=== PATIENT | male | born 2000 | race Caucasian/White ===

== ENCOUNTER 2021-07-02 18:24 | Outpatient (REF) | payer MEDICAID, SELFPAY ==
[2021-07-02 21:09] LABS: ALT 25 U/L (16-63); AST 16 U/L (15-37); Albumin 4.9 g/dL (3.4-5.0); Alkaline Phosphatase 76 U/L (46-116); Anion Gap 13.9 mmol/L (3-11); BUN 13 mg/dL (7-18); Bilirubin, Total 0.7 mg/dL (0.2-1.0); CO2 22.1 mmol/L (21.0-32.0); CREATININE 0.8 mg/dL (0.70-1.30); Calcium 9.7 mg/dL (8.5-10.1); Chloride 102 mmol/L (98-107); Glucose 94 mg/dL (74-106); Potassium 3.9 mmol/L (3.5-5.1); Sodium 138 mmol/L (136-145); TSH (W/Ref FT4) 1.91 uIU/mL (0.36-3.74); Total Protein 8.3 g/dL (6.4-8.2)
[2021-07-04 13:26] LABS: COVID-19 RT-PCR UVMMC Result Negative (Negative)
== END 2021-07-02 18:25 | disposition home or self-care (01) ==
LOC: NCHCN 18:24
PROVIDERS: PCP Family Medicine; Visit Provider Physician Assistant Medical
DX: R06.02 Shortness of breath (principal); Z20.822 Contact with and (suspected) exposure to COVID-19; R09.89 Other specified symptoms and signs involving the circulatory and respiratory systems
CPT/HCPCS: 80053; U0003; 84443; 85025

== ENCOUNTER 2021-07-02 18:52 | Outpatient (CLI) | payer MEDICAID, SELFPAY ==
--- NOTE | 2021-07-02 | DI.RAD_ITS ---
Exam(s) XR CHEST 2V PA LATERAL EXAM: XR CHEST 2V PA LATERAL CLINICAL HISTORY: SOB TECHNIQUE: 2D digital imaging was performed. COMPARISON: No exams were available for comparison FINDINGS: MEDIASTINUM: Normal. HEART: Normal. PULMONARY VASCULATURE: Normal. LUNGS: Clear. PLEURAL SPACE: No pleural effusion or pneumothorax. BONE:Unremarkable for age. IMPRESSION: No acute abnormality. DATA REPOSITORY: RADIATION DOSE DELIVERED:
--- NOTE | 2021-07-02 19:14 | DI.VRAD_ITS ---
PROCEDURE INFORMATION: Exam: XR Chest Exam date and time: 07/02/2021 6:54 PM Age: 21 years old Clinical indication: Other: SOB TECHNIQUE: Imaging protocol: XR of the chest. Views: 2 views. COMPARISON: No relevant prior studies available. FINDINGS: Lungs: The lungs are clear. There is no pulmonary vascular congestion. Pleural spaces: There are no pleural effusions present. There is no evidence of pneumothorax. Heart/Mediastinum: The cardiomediastinal silhouette is within normal limits. Bones/joints: Unremarkable. IMPRESSION: No active cardiopulmonary disease identified. Dictated and Authenticated by: Jamil Horton MD. Ordering:KRISHNA Zavala MD
== END 2021-07-02 19:12 ==
PROVIDERS: PCP Family Medicine; Visit Provider Physician Assistant Medical
DX: R06.02 Shortness of breath (principal)
CPT/HCPCS: 71046

== ENCOUNTER 2021-07-07 04:10 | Outpatient (CLI) | payer MEDICAID, SELFPAY ==
[2021-07-07 09:43] LABS: ALT 25 U/L (16-63); AST 11 U/L (15-37); Albumin 4.3 g/dL (3.4-5.0); Alkaline Phosphatase 75 U/L (46-116); Anion Gap 10.3 mmol/L (3-11); BUN 14 mg/dL (7-18); Bilirubin, Total 0.6 mg/dL (0.2-1.0); CO2 25.7 mmol/L (21.0-32.0); CREATININE 0.8 mg/dL (0.70-1.30); Calcium 9.3 mg/dL (8.5-10.1); Chloride 103 mmol/L (98-107); Glucose 68 mg/dL (74-106); Potassium 4.4 mmol/L (3.5-5.1); Sodium 139 mmol/L (136-145); Total Protein 7.7 g/dL (6.4-8.2)
[2021-07-07 14:22] LABS: Abs Immature Grans 0.03 10^3/uL (0.0-0.06); Absolute Basophil Count 0.04 10^3/uL (0.0-0.2); Absolute Eosinophil Count 0.17 10^3/uL (0.0-0.7); Absolute Lymphocyte Count 2.26 10^3/uL (1.2-3.4); Absolute Monocyte Count 0.53 10^3/uL (0.1-0.8); Absolute Neutrophil Count 3.19 10^3/uL (1.2-6.7); Basophils % 0.6; Eosinophils % 2.7; HCT 48.4 % (40.0-50.0); HGB 15.9 g/dL (13.5-17.5); Immature Grans % 0.5; Lymphocytes % 36.3; MCH 30.3 pg (27.0-33.0); MCHC 32.9 % (32.0-36.0); MCV 92.2 fL (80-95); MPV 9.9 fL (8.0-11.0); Monocytes % 8.5; Neutrophils % 51.4; Nucleated RBC 0 %; Platelet Count 337 10^3/uL (130-400); RBC 5.25 10^6/uL (4.36-5.78); RDW 12.9 % (11.8-14.1); RDW-SD 43.6 fL; WBC 6.22 10^3/uL (4.4-10.8)
== END 2021-07-07 04:11 | disposition home or self-care (01) ==
LOC: LBO 04:10
PROVIDERS: PCP Family Medicine; Visit Provider Naturopath
DX: R06.00 Dyspnea, unspecified (principal); R07.9 Chest pain, unspecified; L04.0 Acute lymphadenitis of face, head and neck
CPT/HCPCS: 36415; 80053; 82306; 85025

== ENCOUNTER 2021-07-07 04:46 | Outpatient (CLI) | payer MEDICAID, SELFPAY ==
--- NOTE | 2021-07-07 08:30 | RT.EKG_ITS ---
APPROVED REPORT Exam: Resting ECG Reason for Exam: dyspnea/chest pain Patient Location: O HR:57 bpm ECG Measurements Heart Rate 57 AXIS AZ 161 P 49 QRSd 107 QRS 85 QT 414 T 12 QTc 404 Conclusion Sinus bradycardia...rate< 60 ST elev, probable normal early repol pattern...ST elevation, age<55 Normal Electrocardiogram
== END 2021-07-07 04:47 | disposition home or self-care (01) ==
LOC: RT 04:46
PROVIDERS: PCP Family Medicine; Visit Provider Naturopath
DX: R06.00 Dyspnea, unspecified (principal); R07.9 Chest pain, unspecified
CPT/HCPCS: 93005; 93010

== ENCOUNTER 2022-06-04 11:17 | Outpatient (CLI) | payer MEDICAID, SELFPAY ==
--- NOTE | 2022-06-04 10:45 | DI.RAD_ITS ---
Exam(s) XR SHOULDER RT COMPLETE 2+V EXAM: XR SHOULDER RT COMPLETE 2+V CLINICAL HISTORY: PAIN IN RT SHOULDER-M25.511. TECHNIQUE: 2D digital imaging was performed of the right shoulder. Five images were obtained. AP, Grashey, Y-view and axillary views were obtained. COMPARISON: CR,XR XR CHEST 2V PA LATERAL from 07/02/2021 FINDINGS: BONES: No acute fracture is present. No bony destructive lesion is seen. JOINTS: No dislocation present. SOFT TISSUE: Normal. IMPRESSION: Unremarkable radiographs of the right shoulder. If there is concern for AC joint separation, x-rays w ithout and with weights may be obtained. DATA REPOSITORY: RADIATION DOSE DELIVERED:
== END 2022-06-04 11:37 ==
PROVIDERS: PCP Family Medicine; Visit Provider Nurse Practitioner Family
DX: M25.511 Pain in right shoulder (principal)
CPT/HCPCS: 73030

== ENCOUNTER 2022-07-08 12:15 | Emergency (ER) | payer MEDICAID, SELFPAY ==
[2022-07-08] VITALS (10 sets, daily range): BP systolic 117–132; BP diastolic 72–91; PULSE 61–71; RESP 12–24; TEMP 37.2; O2SAT 97
--- NOTE | 2022-07-08 12:15 | DI.RAD_ITS ---
Exam(s) XR TIB/FIB LT EXAM: XR TIB/FIB LT CLINICAL HISTORY: trauma, boot top ski fall. TECHNIQUE: 2D digital imaging was performed. COMPARISON: No exams were available for comparison FINDINGS: 3 views There is a mildly displaced comminuted fracture at the midshaft of tibia. No osseous lesions nor rad iopaque foreign body. Tibial plateau is intact. There is no fibular fracture seen. IMPRESSION: Oblique mildly comminuted midshaft fracture of the tibia. DATA REPOSITORY: RADIATION DOSE DELIVERED:
[2022-07-08] MEDS: Ketorolac 30 MG/ML VIAL IVP (12:28)
--- NOTE | 2022-07-08 13:04 | ED.GENADUL_ITS ---
Discharge Plan Disposition Patient Disposition: Home Condition: Stable Discharge Details Clinical Impression: Fracture of tibia, left, closed, Fall from snow-skis, initial encounter Primary Care Provider: Chung Everett ED Provider: Karan Malcolm Home Meds and New Rx's Prescriptions: No Action aspirin 81 mg tablet,delayed release (DR/EC) 81 mg PO BID 30 Days Qty: 60 0RF naproxen 250 mg tablet 250 - 500 mg PO BID PRNQty: 40 0RF Rx Instructions: take with a meal tramadol 50 mg tablet 50 mg PO Q8H PRN (Reason: severe pain) Qty: 9 0RF Discharge Instructions Instructions: Leg Fracture (ED) Additional Instructions: No eating or drinking after midnight. Please take ibuprofen over the counter. Take 600mg by mouth every 6 hours as needed for pain. Please take acetaminophen (tylenol) - 650mg every 6 hours by mouth as needed for pain. Please keep splint clean, dry and intact. Use crutches. No weightbearing until cleared by orthopedics. Please follow-up with orthopedics. Call to schedule appointment for follow-up. Return to the emerge department immediately for any worsening or new concerning symptoms. Referrals: [facility] [Provider Group] Discharge Data Discharge Date/Time-TO BE ENTERED AT DEPARTURE: 07/08/22 16:20 Medical Decision Making 1309 -- 22 year-old male here with left lower leg pain after fall while skiing. Patient has swelling and tenderness of his mid lower leg. Neurovascular intact distally, no other injury. Hemodynamically stable. Patient given Toradol 30 mg IV for pain. X-ray of the left tib-fib reviewed and interpreted by me: Oblique fracture of the tibia. --Patient continued pain and was given acetaminophen IV. 1550 --patient was seen by Dr. Mcdonald and Dr. Lundberg. Plan for likely ORIF. They recommend posterior splint. Patient was given fentanyl 100 mcg IV for pain and posterior splint was applied by me. Patient neurovascular intact post splint application. Patient provided crutches and recommended nonweightbearing. Usual customary discharge instructions were reviewed with the patient. HPI General Mode of arrival: ambulatory . Date/Time Provider Initiated Documentation: 07/08/22 12:21 . Limitations to Documentation: no limitations . Information obtained by: patient . HPI Narrative: 22-year-old male presents with chief complaint of left leg pain. Patient was downhill skiing went off a jump and fell while landing. He felt a pop in his left lower leg and has had pain since the injury. He arrives by EMS and block splint. He denies associated head injury, neck, back injury, chest or abdominal injury. Patient did not his head and did not lose consciousness. Patient was given fentanyl IV for pain. Related Data Home Medications Medication Instructions Recorded Confirmed aspirin 81 mg tablet,delayed 81 mg PO BID Prevent blood clot 30 07/09/22 release days #60 tabs naproxen 250 mg tablet 250 - 500 mg PO BID PRN #40 tabs 07/09/22 tramadol 50 mg tablet 50 mg PO Q8H PRN severe pain #9 07/09/22 tabs Previous Rx's Medication Instructions Recorded aspirin 81 mg tablet,delayed 81 mg PO BID Prevent blood clot 30 07/09/22 release days #60 tabs naproxen 250 mg tablet 250 - 500 mg PO BID PRN #40 tabs 07/09/22 tramadol 50 mg tablet 50 mg PO Q8H PRN severe pain #9 07/09/22 tabs Allergies Allergy/AdvReac Type Severity Reaction Status Date / Time No Known Allergies Allergy Verified 07/09/22 13:41 General Stated Complaint: Orthopedic CASEY: 3 Review of Systems All systems reviewed & are unremarkable except as noted in HPI and below Constitutional Constitutional: Denies weakness Musculoskeletal Musculoskeletal: Reports as per HPI and Denies tingling Neurologic Neurologic: Denies sensory deficit, Denies tingling and Denies weakness Comments: No numbness or weakness PFSH All Active Problems Right shoulder pain (Acute) Muscle spasm (Acute) Fracture of tibia, left, closed (Acute) Fall from snow-skis, initial encounter (Acute) Medical History History of cellulitis on left leg-summer 2021 Hx of staphylococcal infection left leg-summer 2021 Surgical History History of lingual frenulectomy age 16 Hx of wisdom tooth extraction Social History Smoking/Tobacco Use Status: Current-Occasional Tobacco Type: cigarettes Smoking risk assessment performed?: Yes Alcohol Intake: current Alcohol Intake frequency: a few times a week Alcohol type: beer and hard liquor Drug use: Occasionally Substance use type: marijuana Details: t-1 @ 1800 Do you feel safe at home: Yes Do you feel safe in your relationship?: Yes Exam Const General: cooperative [facility] Head: normocephalic and atraumatic Eyes Conjunctivae: normal conjunctivae Sclera: normal sclerae Neck Neck: full ROM and nontender Resp Auscultation: clear to auscultation bilaterally, no rales, no rhonchi and no wheezes Cardio Rate: regular rate and not tachycardic Rhythm: regular rhythm GI Palpation: soft, not firm, no guarding, no masses, not rigid and nontender Skin General skin exam: no rashes or lesions noted Neuro General: patient alert, patient awake, patient oriented x3 and tone normal Extrem General: no edema Left lower extremity: lower leg Details: localized swelling Location: of the mid lower leg and no edema; no lacerations and no deformity and foot Details: normal capillary refill, toes with normal ROM and motor-sensory exam (nl) Psych Appearance: grossly normal Mental Status: mental status grossly normal Speech and Movement: speech and movement normal Course Vital Signs Vital signs: Vital Signs Temperature 37.2 C 07/08/22 12:14 Pulse 71 07/08/22 12:14 Respiratory Rate 18 07/08/22 12:14 Blood Pressure 132/86 07/08/22 12:14 Pulse Oximetry 97 07/08/22 12:14 Temperature 37.2 C 07/08/22 12:14 Temperature Source Temporal Artery Scan 07/08/22 12:14 Pulse 71 07/08/22 12:14 Respiratory Rate 18 07/08/22 12:14 Respiratory Effort 07/08/22 12:19 Blood Pressure 132/86 07/08/22 12:14 Blood Pressure Position Supine 07/08/22 12:14 Pulse Oximetry 97 07/08/22 12:14 Oxygen Delivery Method Room Air 07/08/22 12:14 Oxygen Flow Rate 0 07/08/22 12:14 Pain Level 7 07/08/22 12:28 PAWSS Have you Been Recently Intoxicated or Drunk Within the Last 30 days?: No Have you Ever Experienced Previous Episodes of Alcohol Withdrawal?: No Have you ever Experienced Withdrawal Seizures?: No Have you ever Experienced Delirium Tremens(DT)s?: No Have you ever undergone Alcohol Rehabilitation Treatment (i.e, inpt ot outpati ent treatment programs)?: No Have you ever Experienced Blackouts?: No Have you ever Combined Alcohol with other Downers within the last 90 days?: No Have you ever Combined Alcohol with any other Substance of Abuse during the last 90 days?: No Positive Blood Alcohol level on Presentation? [PCS.BAL]: No Evidence of Increased Autonomic Activity (i.e. HR>120, tremor, sweating, agitation, nausea)?: No Result: 0
[2022-07-08] MEDS: ACETAMINOPHEN 1,000 MG/100 ML BTL 400 MG IVPB (14:00)
[2022-07-08] MEDS: fentaNYL 100 MCG/2 ML VIAL (15:21)
--- NOTE | 2022-07-08 15:42 | W.ORTHOCONSU ---
Date of service: 07/08/22 Time of Service: 15:42 History of Present Illness History of Present Illness Chief Complaint: Left Tibia Fracture Narrative: Cem is a 22-year-old active male who was skiing today. He went for a jump and landed awkwardly. He had immediate pain and some deformity about the left leg. He is brought to the emergency department and diagnosed with a left tibial shaft fracture. His pain has been relatively well controlled. He has no other medical issues. 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 He denies any numbness or tingling. He has pain only in the midshaft of the tibia primarily. No pain in the knee. Consults Consult date: 07/08/22 Requesting physician: Karan Malcolm Consult Reason Left tibial shaft fracture Assessment and Plan Assessment and plan (1) Fracture of tibia, left, closed: Status: Acute Assessment and plan: Cem is a 22-year-old active male who has a left tibial shaft fracture. There very well may be a nondisplaced proximal fibular fracture but it does not change options of treatment. It is overall in a good alignment however, there is some mild displacement and comminution with the butterfly fragment. Given the time to heal of a left tibia fracture and his active lifestyle it would be recommended to have this fixed with intramedullary nail. I did discuss the treatment of cast but he would prefer to have this fixed to encourage early mobility given his active lifestyle and pursuits. I reviewed some the technical details about interventional nail fixation of the left tibia. I discussed briefly the rehabilitation involved. This would be done as a day surgery or short overnight stay. As for today, I recommend he is placed into a long-leg splint. He may use crutches to stay nonweightbearing. He does use marijuana and this can sometimes help out with pain and inflammation. He should keep the leg elevated at all times except for bathroom. He will be n.p.o. after midnight tonight, likely coming through same-day surgery tomorrow. My partner, Dr. Lundberg, is in the operating room tomorrow who should be able to fix this. We will work on scheduling later this evening and first thing the morning. I discussed all this with Cem and he is in agreement with the plan. Review of Systems All systems reviewed & are unremarkable except as noted in HPI and below PFSH All Active Problems Fracture of tibia, left, closed (Acute) Fall from snow-skis, initial encounter (Acute) Muscle spasm (Acute) Right shoulder pain (Acute) Social History Smoking/Tobacco Use Status: Never Smoking risk assessment performed?: Yes Alcohol Intake: current Alcohol Intake frequency: a few times a week Drug use: Never Substance use type: does not use Do you feel safe at home: Yes Do you feel safe in your relationship?: Yes Exam Narrative Exam Narrative: Evaluation of family in the hospital stretcher. Alert and oriented x3. Head is normocephalic and atraumatic. No acute distress. Evaluation the left leg shows mild swelling of the midshaft the left tibia. There is no obvious gross deformity. No threatened skin. No sign of ecchymosis. No laceration or abrasion. He is able to actively extend and flex the great toe. He has sensation intact light touch over the deep and superficial peroneal nerve and tibial nerve. Palpable DP and PT pulse. No pain palpation of the distal femur or the knee joint itself. Resp Auscultation: clear to auscultation bilaterally Cardio Rate: regular rate Rhythm: regular rhythm Results Last Vital Signs Temp 37.2 C 07/08/22 12:14 Pulse 71 07/08/22 12:14 Resp 18 07/08/22 12:14 BP 132/86 07/08/22 12:14 Pulse Ox 97 07/08/22 12:14 Imaging Imaging Studies: X-ray of the left tibia and fibula demonstrates a slightly comminuted midshaft tibia fracture. There is a butterfly fragment. Overall alignment is nearly anatomic. There does appear to be a small fracture line seen on the lateral of the knee at the proximal fibula. I do not see an exit point.
--- NOTE | 2022-07-08 16:26 | NUR.NOTE ---
Nursing Note: Referral given to Care Management needs PCP, establish care; routine follow up.
== END 2022-07-08 16:20 | disposition home or self-care (01) ==
PROVIDERS: Emergency Provider Student in an Organized Health Care Education/Training Program; PCP Family Medicine
DX: S82.232A Displaced oblique fracture of shaft of left tibia, initial encounter for closed fracture (principal); W19.XXXA Unspecified fall, initial encounter; Y93.23 Activity, snow (alpine) (downhill) skiing, snowboarding, sledding, tobogganing and snow tubing
CPT/HCPCS: 29515; 96365; 96375; 99284; 73590; J0131; J1885; J3010

== ENCOUNTER 2022-07-09 12:55 | Day surgery (SDC) | payer MEDICAID, SELFPAY ==
[2022-07-09] VITALS (11 sets, daily range): BP systolic 94–149; BP diastolic 41–97; PULSE 67–89; RESP 14–22; TEMP 36.4–37; O2SAT 94–99; BMI 27.1
[2022-07-09] MEDS: Lactated Ringers 1,000 ML 30 ML IV (13:45)
[2022-07-09] MEDS: VANCOMYCIN/WATER (PEG) 1 GM/200 ML BAG IVPB (13:52)
--- NOTE | 2022-07-09 14:08 | W.ANESPRE ---
General Info Date of Service Date Performed: 07/09/22 Height: 5 ft 10 in Weight: 85.8 kg Body Mass Index (BMI): 27.1 Surgical Procedure: Operation Date: 07/09/22 14:40 Proposed Procedure Side Surgeon p Tibial IM Nailing Left Rich Lundberg MD Meds Allergies and Home Medications Allergies Allergy/AdvReac Type Severity Reaction Status Date / Time No Known Allergies Allergy Verified 07/09/22 13:41 Home Medication Medication Instructions Recorded ibuprofen 800 mg tablet 800 mg PO Q6H PRN 07/09/22 Current Visit Medications: Current Medications Generic Name Dose Route Start Last Admin Trade Name Freq PRN Reason Stop Dose Admin Ringer's Solution 1,000 mls @ 30 mls/hr 07/09/22 06:00 07/09/22 13:45 IV 07/09/22 16:00 30 mls/hr INFUSION TOMASA Administration Cefazolin Sodium/Dextrose 2 gm in 50 mls @ 100 mls/hr 07/09/22 06:00 Ancef Duplex IVPB 07/09/22 23:59 PREOP TOMASA Vancomycin/PEG/NADA/Lysine/Water 1 gm in 200 mls @ 133.333 mls/hr 07/09/22 12:15 07/09/22 13:52 Vancocin Injection IVPB 07/09/22 16:00 133.333 mls/hr PREOP TOMASA Administration IV Miscellaneous Supplies 1 each 07/09/22 06:00 Iv Access IV 07/09/22 23:59 DIRECTED TOMASA Sodium Chloride 0 ml 07/09/22 06:00 Normal Saline Flush 10 Ml Syr IV 07/09/22 23:59 PRN PRN Sodium Chloride 0 ml 07/09/22 06:00 Normal Saline 10 Ml Vial IJ 07/09/22 23:59 DIRECTED PRN Sterile Water 0 ml 07/09/22 06:00 Water,Injection,Sterile 10 Ml Vial IJ 07/09/22 23:59 DIRECTED PRN PFSH Active Problems Active Problems: Problem Status Onset Code Right shoulder pain M25.511 Muscle spasm M62.838 Fracture of tibia, left, closed S82.202A Fall from snow-skis, initial encounter V00.321A Medical History Medical History History of cellulitis on left leg-summer 2021 Hx of staphylococcal infection left leg-summer 2021 Surgical History Surgical History History of lingual frenulectomy age 16 Hx of wisdom tooth extraction Tobacco Smoking/Tobacco Use Status: Current-Occasional Tobacco Type: cigarettes Alcohol Alcohol Intake: current Alcohol intake frequency: a few times a week Alcohol type: beer and hard liquor Substance Use Substance use: Occasionally Substance use type: marijuana Details: t-1 @ 1800 Vital Signs and Lab Results Vital Signs Most Recent Vital Signs in EMR: Most Recent Vital Signs Temp Pulse Resp BP Pulse Ox 36.9 C 89 16 149/97 H 99 07/09/22 13:42 07/09/22 13:42 07/09/22 13:42 07/09/22 13:42 07/09/22 13:42 Lab Results Blood Type / Crossmatch: No Data to Display Complete Blood Count: No Data to Display Complete Metabolic Panel: No Data to Display Liver Function Panel: No Data to Display Coagulation Panel: No Data to Display Cardiac Panel: No Data to Display Arterial Blood Gas: No Data to Display Venous Blood Gas: No Data to Display Pancreas Panel: No Data to Display Thyroid Panel: No Data to Display Infectious Disease: No Data to Display Blood Cultures: No Data to Display Toxicology Panel: No Data to Display Anesthesia Assessment and Plan Anesthesia History Personal History: No History of Anesthesia Complications Family History: No Family History of Anesthesia Complications Exercise Tolerance Exercise Tolerance: Metabolic Equivalents>4 Pertinent Negatives Pertinent Negatives: No Symptoms of GERD, No Major Cardiovascular Symptoms or Complaints, No Major Pulmonary Symptoms or Complaints and No History of CVA/TIA Cardiac & Pulmonary Exam Cardiac Exam: Normal S1/S2 Heart Sounds Pulmonary Exam: Clear Bilateral Breath Sounds Implantable Cardiac Device Does patient have a Pacemaker or an ICD?: No Airway Exam Known Difficult Airway: No Mallampati Class: 2 Mouth Opening: Normal (> 3cm) Thyromental Distance: Greater than 3 cm Neck Range of Motion: Full ROM Neck Circumference: Normal Teeth Condition: Normal Dentition ASA Classification ASA Score: ASA 2 Emergency Case?: No NPO Status NPO Status: NPO Clears >2 hours, Solids >8 hours Anesthesia Plan Resuscitation Status: Full Code Anesthesia Technique: General Anesthesia Airway Planned: LMA Pain Management: Surgeon and patient request nerve block Monitors Used: Standard Monitors
--- NOTE | 2022-07-09 14:30 | DI.RAD_ITS ---
Exam(s) XR TIB/FIB LT EXAM: XR TIB/FIB LT CLINICAL HISTORY: Left Tibia Fracture TECHNIQUE: 2D and realtime digital imaging was performed. CONTRAST MATERIAL: Refer to procedure report. COMPARISON: CR XR TIB/FIB LT from 07/08/2022 FINDINGS: Fluoroscopy was provided for Dr. Lundberg during the performance of a internal fixation of a left tibi al fracture. Please refer to the procedure report for complete details. Ka,r=3.63 mGy IMPRESSION: RADIATION DOSE DELIVERED:
--- NOTE | 2022-07-09 14:53 | W.ANESNERVE ---
Nerve Block Single Injection Procedure Date and Time Date Performed: 07/09/22 Procedure Start: 14:31 Location Where Procedure Performed Procedure Location: Day Surgery Unit Reason Performed: Postoperative Analgesia Requesting Provider: Rich Lundberg Timeout Performed Timeout Performed: Yes Monitoring Used ECG, Blood Pressure, SpO2 and See EMR for corresponding vital signs Sterility Sterility: Hand Hygiene, Surgical Cap, Surgical Mask, Sterile Gloves and Chlorhexidine Sedation Given During Procedure Sedation Given (Indicate Dose Given): No Sedation given (Versed administered prior for adductor block, see documentation) Patient Mental Status Patient Mental Status: Awake Nerve Block 1st Nerve Block: Laterality: Left Block Type: Popliteal Sciatic Ultrasound Image Saved?: Yes Needle / Catheter Used: 100mm SonoPlex II Local Anesthetic Bolus (Indicate Dose Given): Lidocaine used for local infiltration of skin, Injected in 3-5ml increments after negative blood aspiration and Bupivacaine 0.25% Dose:: 20mL Additives (Indicate Dose Given): None Ultrasound: Used to jian site Nerve Stimulator: Not Used Paresthesia: Left (Stopped needle placement and slight cephalad advancement, short and self resolving) Paresthesia Duration: Transient Procedure Tolerated: No Complications and Patient tolerated well Procedure Outcome: Successful Performed By: Brea Dior
--- NOTE | 2022-07-09 14:59 | W.ANESNERVE ---
Nerve Block Single Injection Procedure Date and Time Date Performed: 07/09/22 Procedure Start: 14:18 Location Where Procedure Performed Procedure Location: Day Surgery Unit Reason Performed: Postoperative Analgesia Requesting Provider: Rich Lundberg Timeout Performed Timeout Performed: Yes Monitoring Used ECG, Blood Pressure, SpO2 and See EMR for corresponding vital signs Sterility Sterility: Hand Hygiene, Surgical Cap, Surgical Mask, Sterile Gloves, Sterile Drape/Sheet and Chlorhexidine Sedation Given During Procedure Sedation Given (Indicate Dose Given): Versed IV Dose:: 2 mg Patient Mental Status Patient Mental Status: Sedate with meaningful communication Nerve Block 1st Nerve Block: Laterality: Left Block Type: Adductor Canal Ultrasound Image Saved?: Yes Needle / Catheter Used: 100mm SonoPlex II Local Anesthetic Bolus (Indicate Dose Given): Lidocaine used for local infiltration of skin, Injected in 3-5ml increments after negative blood aspiration and Bupivacaine 0.25% Dose:: 15 ml Additives (Indicate Dose Given): None Ultrasound: Sterile probe cover and gel used Nerve Stimulator: Not Used (Nerve stimulation would have caused patient too much discomfort with unstable fracture) Paresthesia: None Procedure Tolerated: No Complications and Patient tolerated well Procedure Outcome: Successful Procedure Comment: Prior to sedation, discussed risks and benefits of nerve blocks to include infection and nerve injury. Also discussed importance of watching for s/s of compartment syndrome since the blocks may mask these symptoms. Performed By: Reema Moise
[2022-07-09] MEDS: ceFAZolin 2 GM/50 ML BAG IVPB (15:08)
[2022-07-09] MEDS: Bupivacaine 0.5% Pres-Free W/EPI 30 ML VIAL (17:03)
[2022-07-09] MEDS: Hydrogen Peroxide 3% 480 ML BTL (17:10)
--- NOTE | 2022-07-09 17:40 | W.PM.DSUDISC ---
Date of service: 07/09/22 Time of Service: 17:00 Discharge Plan Disposition Patient Disposition: Home Discharge Details Reason For Visit: (L) TIBIAL SHAFT FX Attending Provider: Rich Lundberg Primary Care Provider: No,Local Home Meds and New Rx's Prescriptions: New aspirin 81 mg tablet,delayed release (DR/EC) 81 mg PO BID 30 Days Qty: 60 0RF naproxen 250 mg tablet 250 - 500 mg PO BID PRNQty: 40 0RF Rx Instructions: take with a meal tramadol 50 mg tablet 50 mg PO Q8H PRN (Reason: severe pain) Qty: 9 0RF Discontinued ibuprofen 800 mg Tablet 800 mg PO Q6H PRN Discharge Instructions Additional Instructions: Surgery: Left tibia intramedullary nailing Activity: Strict elevation to minimize swelling and discomfort. Wiggle toes to improve circulation and prevent stiffness. Non-weightbearing with crutches. You may rest the splint on the ground for stance and balance. Prescriptions: Aspirin 81 mg take twice daily to prevent a blood clot for 30 days Naproxen 250 mg take 1-2 every 12 hours with a meal as needed for moderate pain Tramadol 50 mg take 1 every 8 hours as needed for severe pain You may use read-gkm-[id number] Tylenol (acetaminophen) as needed for mild pain. These pain medications may be taken all at once or in different combinations as needed. Also, recommend Colace (docusate) as a stool softener as surgery and pain medicine cause constipation. You may try gblg-zae-jzajspd diphenhydramine (Benadryl) 25-50 mg nightly as a sleep aid Dressings: Leave splint and dressing in place until follow-up. Keep clean and dry at all times. Follow-up: 10-[address] Lundberg You may take off the leg compression stockings this evening at home. You may also leave them on a few days longer if you have a history of leg swelling or edema. Let us know right away if you develop any redness, drainage, fevers, chest pain, or trouble breathing. Do not drink alcohol or drive for at least 24 hours after anesthesia. Please call the office during business hours with any questions or concerns. Discharge Orders Discharge Orders: Discharge Order (Routine); Ordered 07/09/22 Ordered By: Rich Lundberg DS: Diagnosis Discharge Diagnosis (1) Fracture of tibia, left, closed: Status: Acute
--- NOTE | 2022-07-09 17:47 | ROE_ITS ---
Date of service: 07/09/22 Time of Service: 15:00 Operative Note Operative Note DATE OF PROCEDURE: 07/09/22 PRE-OP DIAGNOSIS: Left tibial shaft fracture POST-OP DIAGNOSIS: same PROCEDURE: Left tibia intramedullary nailing, CPT #20804 SURGEON: Rich Lundberg MEDICAL LABORATORY SCIENTIST: Gabrielle Gutiérrez ANESTHESIA TYPE: Local By Surgeon, General LMA/ETT and Primary Nerve Block Refer to Anesthesia Record ESTIMATED BLOOD LOSS: 15 TOURNIQUET TIME: 0 COMPLICATIONS: None Patient was transported to: PACU Patient's condition: stable Indications: Please see complete medical record for details. Procedure Description: In the operating room, general anesthesia was induced. The patient was positioned supine on the operating room table. All bony prominences were well- padded. Preoperative antibiotics were administered. The left leg was prepped and draped in the usual sterile fashion. The correct patient, procedure, and side of the procedure were all verified prior to incision. The lateral extra-articular approach was taken to the tibial nail start point. Capsule protected and patella mobilized nicely out of the way medially. The cannulated awl was used to open the proximal tibia. The ball-tipped guidewire was then inserted into the proximal tibia and guided across the fracture site, which was maintained reduced largely resting in a neutral position, and directed into a center center position above the ankle joint. The initial reamer was used over this long guidewire. It had difficulty making the posterior band and the long wire added too much flexibility to make the turn. This guidewire was removed and replaced with a shorter ball-tipped guidewire again carefully directed across the fracture site and secured distally tibial physeal scar centrally. Reaming was done sequentially maintaining reduced tibia and checking the large butterfly fragment on lateral fluoroscopy to ensure no malreduction. Starting with 8.5 mm reamer and ending at 12.0 with reasonable chatter centrally. The depth gauge was used to measure and a 10 mm x 345 mm nail was selected. It was assembled to the jig and guided into the proximal tibia over the wire. It was carefully directed across the fracture site and into the distal tibia before removing the guidewire and finally seating it centrally above the ankle mortise. Position was confirmed just countersunk proximally. Proximal locking was done with 2 static screws from medial to lateral. Rotation was confirmed and then perfect circles technique was used to place 2 distal static locking screws. The jig was removed proximally. Final x-ray images showed excellent anatomic appearing reduction and appropriate hardware placement. Leg compartments remained compressible. The lateral patellar incision was copiously irrigated with normal saline and suction to ensure all reamings were removed from the deep space. The lateral retinaculum was closed using 2-0 Monocryl. 2-0 Monocryl used to close subcutaneous tissue followed by 3-0 Monocryl buried running for the skin. The locking screw sites were closed using 3-0 nylon simple stitches. Steri-Strips applied over the lateral parapatellar incision and Xeroform applied over all incisions. The leg was wrapped in sterile soft roll. An AO short leg plaster splint was then applied keeping the foot out of equinus with appropriate padding and [place] wraps covering from the foot ankle leg above the knee surgical site to the lower thigh The patient awoke from anesthesia without complication and was transferred to the recovery room in a stable condition.
--- NOTE | 2022-07-09 18:07 | W.ANESPOSTOP ---
Postoperative Evaluation Date, Time and Location Date Performed: 07/09/22 Time Performed: 18:07 Patient Location: PACU Vital Signs Most Recent Imported Vital Signs: Most Recent Vital Signs Temp Pulse Resp BP Pulse Ox 36.5 C 68 15 96/54 L 94 07/09/22 17:58 07/09/22 17:58 07/09/22 17:58 07/09/22 17:58 07/09/22 17:58 Pain Score Most Recent Pain Score: Most Recent Pain Score Pain Level 0 07/09/22 17:58 Assessment Mental Status: Awake (Alert & Oriented to Patient Baseline) Airway and Respiratory Function: Patent airway with normal (patient baseline) respiratory exam Cardiovascular Function: Hemodynamically Stable Hydration Status: Adequately Hydrated Nausea & Vomiting: No Nausea or Vomiting Pain: Pain is tolerable per patient Peripheral Nerve Block: Regional nerve block not resolved at time of post operative discharge
[2022-07-09] MEDS: Acetaminophen 500 MG TAB 1000 MG PO (18:43)
== END 2022-07-09 20:00 | disposition home or self-care (01) ==
LOC: SUR 14:47 → MS 18:21
PROVIDERS: Visit Provider Student in an Organized Health Care Education/Training Program
PROC: (CPT 27759; principal; 2022-07-09 14:30)
DX: S82.202A Unspecified fracture of shaft of left tibia, initial encounter for closed fracture (principal); X58.XXXA Exposure to other specified factors, initial encounter
CPT/HCPCS: 27759; 76942; 73590; G0378; J0690; J1100; J1885; J2250; J2405; J2704; J3010

== ENCOUNTER 2022-07-20 11:42 | Outpatient (CLI) | payer MEDICAID, SELFPAY ==
--- NOTE | 2022-07-20 11:00 | DI.RAD_ITS ---
Exam(s) XR TIB/FIB LT EXAM: XR TIB/FIB LT CLINICAL HISTORY: tib/fib f/u. TECHNIQUE: 2D digital imaging was performed. COMPARISON: CR XR TIB/FIB LT from 07/08/2022 FINDINGS: Two views: There is been interval rodding of the tibia across the comminuted fracture site. Alignment is stable . Keyshawn is secured by 2 screws proximally and 2 screws distally. IMPRESSION: DATA REPOSITORY: RADIATION DOSE DELIVERED:
== END 2022-07-20 11:43 | disposition home or self-care (01) ==
LOC: DIORS 11:43
PROVIDERS: Visit Provider Student in an Organized Health Care Education/Training Program
DX: S82.202D Unspecified fracture of shaft of left tibia, subsequent encounter for closed fracture with routine healing (principal); X58.XXXD Exposure to other specified factors, subsequent encounter
CPT/HCPCS: 73590

== ENCOUNTER 2022-08-17 10:32 | Outpatient (CLI) | payer MEDICAID, SELFPAY ==
--- NOTE | 2022-08-17 10:15 | DI.RAD_ITS ---
Exam(s) XR TIB/FIB LT EXAM: XR TIB/FIB LT CLINICAL HISTORY: tib/fib f/u. TECHNIQUE: 2D digital imaging was performed. COMPARISON: CR XR TIB/FIB LT from 07/20/2022 FINDINGS: Two views: Again noted is long tibial medullary inocencia transfixing the comminuted fracture site mid-lower half tibi a. Appearance is similar to 1 month ago. Fracture line still evident. No obvious callus formation. No radiographic evidence of osteomyelitis. No abnormal intraosseous lucency around the hardware. IMPRESSION: Stable appearance. DATA REPOSITORY: RADIATION DOSE DELIVERED:
== END 2022-08-17 10:33 | disposition home or self-care (01) ==
LOC: DIORS 10:32
PROVIDERS: Visit Provider Student in an Organized Health Care Education/Training Program
DX: S82.232D Displaced oblique fracture of shaft of left tibia, subsequent encounter for closed fracture with routine healing (principal); W19.XXXD Unspecified fall, subsequent encounter
CPT/HCPCS: 73590

== ENCOUNTER 2022-09-10 17:19 | Emergency (ER) | payer MEDICAID, SELFPAY ==
[2022-09-10 17:32] VITALS: BP 134/78; PULSE 75; RESP 16; TEMP 36.5; O2SAT 98
--- NOTE | 2022-09-10 17:49 | W.ED.GENAD ---
Discharge Plan Disposition Patient Disposition: Home Condition: Good Discharge Details Clinical Impression: Ankle pain Primary Care Provider: Adonay Amato ED Provider: Hailee Cool Home Meds and New Rx's Prescriptions: No Action No Known Home Meds Discharge Instructions Instructions: Leg Pain (ED) Additional Instructions: As we discussed, your exam is reassuring here today. I do not see indication of infection. Patient did not suffer any trauma, unlikely to be injury or fracture. Likely associated with overuse. Try to cut back so that you are able to advance your activity more slowly while you are healing from your recent fracture. Please encourage rest, ice, elevation. Tylenol and/or ibuprofen as needed for discomfort. Please keep your upcoming appoint with Dr. Lundberg. If you develop any redness, warmth, drainage, increased pain, fever/chills or other new/worsening symptom please seek care urgently once again. Referrals: Rich Lundberg MD [ [facility] STAFF PHYSICIAN] - Discharge Data Discharge Date/Time-TO BE ENTERED AT DEPARTURE: 09/10/22 18:05 Medical Decision Making Patient is a pleasant 22-year-old male with past medical history significant for a tibial fracture with surgical fixation in June of this year. Patient reports that he was cleared by orthopedics to begin weightbearing activities about a month ago and has been advancing his activities. Of note, he does report that more recently has been active advancing his activities fairly rapidly. Has been on a stationary bike, working physical therapy and hikes [place]. He was concerned that he had increased pain today, particularly near the ankle. Denies any fevers or chills. Denies any numbness or tingling. No recent injury. On exam, patient appears nontoxic. He is 2+ distal pulses. His incisions appear to be healing well no surrounding erythema, warmth, drainage. Calf soft and nontender. No palpable cord. Achilles is intact. No reproducible pain on exam. He is full range of motion of his ankle and knee. Sensation is intact. I do not see any indication at this time for infectious etiology. He is not having any pain near where the hardware would have been implanted. Likely this associated with overuse. Patient I did discuss imaging and he declines at this time. He does have a follow-up appointment with Dr. Lundberg on Tuesday of next week. I encouraged rest, ice, elevation. Tylenol and ibuprofen as needed for discomfort. Has not been using any analgesics. I did offer him some here and he declined. Return precautions were discussed. All his questions and concerns were addressed and he is in agreement this plan. HPI General Date/Time Provider Initiated Documentation: 09/10/22 17:49. Limitations to Documentation: no limitations. Information obtained by: patient, RN notes reviewed and old records reviewed. History of Present Illness 22 year old M presents to the emergency department with the chief complaint of left ankle pain, described as mild (states it was worse earlier, has been improving), Quality is described as aching, Patient reports no radiation. Patient started experiencing this day(s) and it has been now resolved (resolved with rest, worse right after activity). Immobilization improves symptom(s), Movement worsens symptoms . Patient notes no other symptoms.. Patient did receive the following treatments prior to arrival, none Related Data Home Medications Medication Instructions Recorded Confirmed Unknown [No Known Home Meds] 08/17/22 09/10/22 Allergies Allergy/AdvReac Type Severity Reaction Status Date / Time No Known Allergies Allergy Verified 09/10/22 17:37 General Stated Complaint: Orthopedic CASEY: 4 Review of Systems Constitutional Constitutional: Reports as per HPI, Denies chills, Denies fever(s), Denies headache(s) and Denies weakness ENT Ears, Nose, Mouth, and Throat: Denies headache(s) Musculoskeletal Musculoskeletal: Reports as per HPI and Denies tingling Integumentary/Breasts Skin/Breast: Reports as per HPI, Denies rash and Denies wounds Neurologic Neurologic: Reports as per HPI, Denies headache(s), Denies tingling, Denies paresthesias and Denies weakness PFSH All Active Problems (Updated 09/10/22 @ 18:01 by BETTY Mendoza) Ankle pain (Acute) Right shoulder pain (Acute) Muscle spasm (Acute) Medical History (Updated 09/10/22 @ 18:01 by BETTY Mendoza) Fall from snow-skis, initial encounter History of cellulitis on left leg-summer 2021 Hx of staphylococcal infection left leg-summer 2021 Surgical History History of lingual frenulectomy age 16 Hx of wisdom tooth extraction Social History Smoking/Tobacco Use Status: Current-Occasional Tobacco Type: cigarettes Smoking risk assessment performed?: Yes Alcohol Intake: current Alcohol Intake frequency: a few times a week Alcohol type: beer and hard liquor Drug use: Occasionally Substance use type: marijuana Current gender identity: male Do you feel safe at home: Yes Do you feel safe in your relationship?: Yes Exam Const General: cooperative, healthy appearing, comfortable, no acute distress, well developed and well groomed Nutritional Appearance: average body habitus and well nourished Orientation: alert and awake Resp Effort & Inspection: normal respiratory effort, able to speak in complete sentences and no respiratory distress Cardio Rate: regular rate Rhythm: regular rhythm Skin General skin exam: no rashes or lesions noted Lesions: no lesions Rashes: no rashes Trauma: no lacerations or abrasions Neuro General: patient alert and patient awake Cognition: normal cognition Speech: speech normal Gait: normal gait Motor: muscle tone normal throughout Sensory Exam: no sensory deficits noted Extrem Ankle/foot/toe images: 1. area of tenderness. Incision over the knee appear well healed without erythema, warmth, drainage, swelling. No sweling over the ankle. Full ROM. 2+ distal pulses. Sensation intact. 5/5 strength. No ecchymosis or evidence of trauma. Psych Appearance: grossly normal and well kempt Mental Status: mental status grossly normal Speech and Movement: speech and movement normal Course Vital Signs Vital signs: Vital Signs Temperature 36.5 C 09/10/22 17:32 Pulse 75 09/10/22 17:32 Respiratory Rate 16 09/10/22 17:32 Blood Pressure 134/78 09/10/22 17:32 Pulse Oximetry 98 09/10/22 17:32 Temperature 36.5 C 09/10/22 17:32 Temperature Source Oral 09/10/22 17:32 Pulse 75 09/10/22 17:32 Respiratory Rate 16 09/10/22 17:32 Blood Pressure 134/78 09/10/22 17:32 Blood Pressure Position Sitting 09/10/22 17:32 Pulse Oximetry 98 09/10/22 17:32 Oxygen Delivery Method Room Air 09/10/22 17:32 Oxygen Flow Rate 0 09/10/22 17:32 Pain Level 6 09/10/22 17:32
== END 2022-09-10 18:05 | disposition home or self-care (01) ==
PROVIDERS: Emergency Provider Physician Assistant; PCP Naturopath
DX: M25.572 Pain in left ankle and joints of left foot (principal)
CPT/HCPCS: 99281; 99282

== ENCOUNTER 2022-09-14 11:43 | Outpatient (CLI) | payer MEDICAID, SELFPAY ==
--- NOTE | 2022-09-14 10:45 | DI.RAD_ITS ---
Exam(s) XR TIB/FIB LT EXAM: XR TIB/FIB LT INDICATION: f/u tibia fx. COMPARISON: CR XR TIB/FIB LT from 08/17/2022 TECHNIQUE: 2D digital imaging was performed. Two views. FINDINGS: Intramedullary inocencia is again noted through the tibia for fracture fixation. There has been no change in fracture alignment. Increased callus formation around the fracture. No new abnormalities. DATA REPOSITORY: RADIATION DOSE DELIVERED:
== END 2022-09-14 11:44 | disposition home or self-care (01) ==
LOC: DIORS 11:44
PROVIDERS: PCP Naturopath; Referring Provider Naturopath; Visit Provider Student in an Organized Health Care Education/Training Program
DX: S82.232D Displaced oblique fracture of shaft of left tibia, subsequent encounter for closed fracture with routine healing; W19.XXXD Unspecified fall, subsequent encounter
CPT/HCPCS: 73590

== ENCOUNTER 2024-03-24 16:23 | Outpatient (REF) | payer OTHER, SELFPAY | END 2024-03-24 16:24 | disposition home or self-care (01) | LOC: LBN 16:23 | PROVIDERS: PCP Naturopath; Visit Provider Nurse Practitioner Family | DX: J02.9 Acute pharyngitis, unspecified (principal) | CPT/HCPCS: 87077; 87070 ==